=== PATIENT | female | born 1990 | race African-American/Black ===

== ENCOUNTER 2018-05-09 19:30 | Emergency (ER) | payer MEDICAID ==
[~2018-05-09] VITALS: Ht 167.6 cm; Wt 59.0 kg
[2018-05-09 21:35] LABS: BASOPHILS % 0.2 % (0.0-2.0); EOSINOPHILS % 1.3 % (0.0-5.0); HEMATOCRIT. 26.5 % (36.0-48.0); HEMOGLOBIN. 8.8 g/dL (12.0-16.0); LYMPHOCYTES % 17.1 % (20.0-50.0); MEAN CORPUSCULAR HEMOGLOBIN 28.8 pg (28.0-32.0); MEAN CORPUSCULAR VOLUME 86.5 fL (81.0-99.0); MEAN PLATELET VOLUME 7.5 fl (7.4-10.4); MONOCYTES % 8.1 % (2.0-8.0); NEUTROPHILS % 73.3 % (40.0-76.0); PLATELET 327 x1000/uL (130-400); RED BLOOD CELL COUNT 3.07 mill/uL (4.2-5.4); RED CELL DISTRIBUTION WIDTH 21.5 % (11.6-14.6)
[2018-05-09 21:39] LABS: CHLORIDE 102 mEq/L (98-107)
[2018-05-09 22:02] LABS: B-HCG QUANTITATIVE 116757 mIU/mL (<3)
[2018-05-10 00:47] VITALS: BP 109/70
== END 2018-05-10 00:51 | disposition home or self-care (01) ==
LOC: ER 20:00
DX: O20.0 Threatened abortion (principal); J45.909 Unspecified asthma, uncomplicated; O26.891 Other specified pregnancy related conditions, first trimester; Z3A.11 11 weeks gestation of pregnancy
CPT/HCPCS: 36415; 76801; 80053; 81025; 84702; 85025; 86850; 86900; 99285